=== PATIENT | female | born 1960 | race Caucasian/White ===

== ENCOUNTER 2020-12-07 08:52 | Emergency (ER) | payer OTHER ==
[~2020-12-07] VITALS: Ht 157.5 cm; Wt 72.6 kg
[2020-12-07] MEDS ORDERED: SODIUM CHLORIDE 0.9% 1000ML 1,000 ML IV STA (08:57)
[2020-12-07 09:57] LABS: BASOPHILS % 0.3 % (0.0-1.0); HEMATOCRIT 42.8 % (34.2-44.1); HEMOGLOBIN 14.8 g/dL (12.0-16.0); LYMPHOCYTES # (AUTO) 1.9 (1.0-3.2); MEAN CORPUSCULAR HEMOGLOBIN 31.8 pg (28-32); MEAN CORPUSCULAR HGB CONC 34.6 g/dL (31-35); MONOCYTES # (AUTO) 0.9 (0.2-0.8); NEUTROPHILS # (AUTO) 9.5 (2.1-6.9); NEUTROPHILS % 77.1 % (38.7-80.0); PLATELET COUNT 101 x10e3/uL (140-360); RED BLOOD COUNT 4.65 x10e6/uL (3.6-5.1); RED CELL DISTRIBUTION WIDTH 12.4 % (11.7-14.4)
[2020-12-07 10:22] LABS: AMPHETAMINES SCREEN,URINE NEGATIVE (NEGATIVE); BENZODIAZEPINES SCREEN,URINE POSITIVE (NEGATIVE); PHENCYCLIDINE SCREEN,URINE NEGATIVE (NEGATIVE)
[2020-12-07 10:43] LABS: ALANINE AMINOTRANSFERASE 30 IU/L (0-55); ALBUMIN 4.1 g/dL (3.5-5.0); ALBUMIN/GLOBULIN RATIO 1.1 (0.8-2.0); ALKALINE PHOSPHATASE 149 IU/L (40-150); ANION GAP 18.8 mmol/L (8-16); BLOOD UREA NITROGEN 5 mg/dL (7-26); BUN/CREATININE RATIO 8 (6-25); CALCIUM 9.1 mg/dL (8.4-10.2); CARBON DIOXIDE 23 mmol/L (22-29); CHLORIDE 99 mmol/L (98-107); CREATINE KINASE 551 IU/L (29-168); EST GLOMERULAR FILTRATION RATE > 60 ML/MIN (60-); GLUCOSE 116 mg/dL (74-118); POTASSIUM 3.8 mmol/L (3.5-5.1); SODIUM 137 mmol/L (136-145)
[2020-12-07] MEDS ORDERED: VENTOLIN HFA18 GM INH (11:19)
[2020-12-07] MEDS ORDERED: AZITHROMYCIN250 MG PO (11:19)
[2020-12-07] MEDS ORDERED: PREDNISONE20 MG PO (11:19)
== END 2020-12-07 11:37 | disposition home or self-care (01) ==
LOC: ER 09:43
DX: U07.1 COVID-19 (principal); K76.9 Liver disease, unspecified; Z79.891 Long term (current) use of opiate analgesic
CPT/HCPCS: 36415; 70450; 71045; 80053; 80307; 80320; 82140; 82550; 82553; 84484; 85025; 93005; 99284

== ENCOUNTER 2020-12-07 14:18 | Emergency (ER) | payer OTHER ==
[~2020-12-07] VITALS: Ht 157.5 cm; Wt 72.6 kg
[~2020-12-07 14:18] MED LIST: AZITHROMYCIN250 MG PO; PREDNISONE20 MG PO; VENTOLIN HFA18 GM INH
[2020-12-07 16:02] VITALS: BP 134/62
== END 2020-12-07 17:38 | disposition home or self-care (01) ==
LOC: ER 14:45
DX: U07.1 COVID-19 (principal); K76.9 Liver disease, unspecified; F17.210 Nicotine dependence, cigarettes, uncomplicated
CPT/HCPCS: 99283